=== PATIENT | female | born 1960 | race American Indian/Alaskan Native ===

== ENCOUNTER → 2016-10-31 | Day surgery (SDC) | payer MEDICARE, MEDICAID ==
[~2016-10-31] MED LIST: Lactated Ringers 1,000 ML IV SCH
[2016-10-31 09:01] VITALS: BP 143/91
--- NOTE | 2016-10-31 09:11 | PCM.PREANE ---
Preanesthetic Assessment - Anesthesia/Transfusion/Family Hx Anesthesia History: Prior Anesthesia Reaction (very slow to wake up) Family History of Anesthesia Reaction: No Transfusion History: No Prior Transfusion(s) Intubation History: Unknown - Review of Systems General: No Symptoms Pulmonary: No Symptoms Cardiovascular: No Symptoms Gastrointestinal: No Symptoms Neurological: No Symptoms Other: Reports: None - Physical Assessment O2 Sat by Pulse Oximetry: 95 Respiratory Rate: 16 Vital Signs: Last Vital Signs Temp 36.8 C 10/31/16 09:00 Pulse 95 10/31/16 09:00 Resp 16 10/31/16 09:00 BP 143/91 H 10/31/16 09:00 Pulse Ox 95 10/31/16 09:00 Height: 1.6 m Weight: 79.832 kg ASA Class: 2 Mental Status: Alert & Oriented x3 Airway Class: Mallampati = 2 Dentition: Reports: Dentures (upper), Edentulous (lower) Thyro-Mental Finger Breadths: 2 Mouth Opening Finger Breadths: 2 ROM/Head Extension: Full Lungs: Clear to Auscultation, Normal Respiratory Effort Cardiovascular: Regular Rate, Regular Rhythm - Allergies Allergies/Adverse Reactions: Allergies Allergy/AdvReac Type Severity Reaction Status Date / Time Penicillins Allergy Intermediate Rash Verified 09/22/13 18:01 cephalexin Allergy Airway Verified 02/18/14 11:13 Tightness clindamycin Allergy Airway Verified 02/18/14 11:13 Tightness codeine Allergy Cannot Verified 02/18/14 11:13 Remember Latex, Natural Rubber Allergy Rash Verified 10/25/16 15:36 quetiapine fumarate Allergy Airway Verified 02/18/14 11:13 [From Seroquel] Tightness secobarbital sodium Allergy Rash Verified 09/22/13 18:01 [From Seconal] vancomycin Allergy Rash Verified 09/22/13 18:01 - Blood Blood Available: No - Anesthesia Plan Pre-Op Medication Ordered: None - Acknowledgements Anesthesia Type Planned: General Anesthesia Pt an Appropriate Candidate for the Planned Anesthesia: Yes Alternatives and Risks of Anesthesia Discussed w Pt/Guardian: Yes Pt/Guardian Understands and Agrees with Anesthesia Plan: Yes PreAnesthesia Questionnaire HEENT History: Reports: None Cardiovascular History: Reports: Hypertension Respiratory History: Reports: COPD (mild) Genitourinary History: Reports: Other (See Below) Other Genitourinary History: hx kidney infections in the past 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: 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 History: Neurological History: Reports: Head Trauma, Migraines Other Neuro History: states head injury at 1 yr old, "heat stroke x2" Psychiatric History: Reports: Anxiety, Bipolar, Depression, Suicidal Ideation Endocrine/Metabolic History: Reports: Obesity/BMI 30+ Oncologic (Cancer) History: Reports: Breast, Other (See Below) 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 Dermatologic History: Reports: Other (See Below) Other Dermatologic History: states had infection to previous surgical site, Lotrimin powder ordered for this - Past Surgical History Head Surgeries/Procedures: Reports: None HEENT Surgical History: Reports: Tonsillectomy GI Surgical History: Reports: Appendectomy, Hernia, Inguinal Female Surgical History: Reports: Section 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 Surgical History: Reports: Other (See Below) Other 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 Surgeries/Procedures:: hx foot surgery (toenail removal) Other Surgical History Comment: excision of neuroma - SUBSTANCE USE Smoking Status *Q: Current Every Day Smoker (down to 2 cigarettes per day) Tobacco Use Within Last Twelve Months: Cigarettes Second Hand Smoke Exposure: No Days Per Week of Alcohol Use: 0 Recreational Drug Use History: No - HOME MEDS Home Medications: Home Meds ClonazePAM [KlonoPIN] 1 mg PO ASDIRECTED 09/22/13 [History] Hydrochlorothiazide 25 mg PO DAILY 10/25/16 [History] Miconazole Nitrate [Lotrimin AF] 1 applic TOP ASDIRECTED 10/25/16 [History] - CURRENT (IN HOUSE) MEDS Current Meds: Current Medications Lactated Ringer's (Ringers, Lactated) 1,000 mls @ 125 mls/hr IV ASDIRECTED [facility] Last Admin: 10/31/16 09:02 Dose: 125 mls/hr
== END ==
LOC: MW.SDS 08:39
PROVIDERS: ATTEND Surgery
DX: Z53.9 Procedure and treatment not carried out, unspecified reason (principal)
CPT/HCPCS: J7120

== ENCOUNTER 2016-12-23 00:44 | Emergency (ER) | payer MEDICARE, MEDICAID | END 2016-12-23 01:35 | disposition left against medical advice (07) | LOC: MW.ED 00:44 | DX: Z53.21 Procedure and treatment not carried out due to patient leaving prior to being seen by health care provider (principal) ==

== ENCOUNTER 2016-12-30 21:49 | Emergency (ER) | payer MEDICARE, MEDICAID ==
[2016-12-30 22:03] VITALS: BP 148/87
[2016-12-30] MEDS ORDERED: Sulfamethoxazole/Trimethoprim 800-160 MG Tab PO ONE (22:12)
--- NOTE | 2016-12-30 22:17 | EDM.PDOC ---
ED HPI GENERAL MEDICAL PROBLEM - General Chief Complaint: Skin Complaint Stated Complaint: PT WOULD LIKE TO BE SEEN Time Seen by Provider: 12/30/16 22:13 Source of Information: Reports: Patient - History of Present Illness INITIAL COMMENTS - FREE TEXT/NARRATIVE: HISTORY AND PHYSICAL: History of present illness: [Patient is postop on December 21 for appears to be a lumpectomy, there is a GRISELDA drain in place, there is mild cellulitis surrounding the GRISELDA drain cellulitis lesion is approximately the size of quarter. GRISELDA drain currently not draining any fluid, patient states it is not drained fluid for several days. She is in contact with her general surgeon daily over the phone who has not voiced any concerns per patient. She also has a mastitis that surrounds the areola approximately 2 inches in diameter. Mildly reddened slightly tender no exudate for drainage. No fever nausea vomiting chills sweats no chest pain shortness breath headache dizziness palpitation no bowel or urine symptoms Review of systems: As per history of present illness and below otherwise all systems reviewed and negative. Past medical history: As per history of present illness and as reviewed below otherwise noncontributory. Surgical history: As per history of present illness and as reviewed below otherwise noncontributory. Social history: No reported history of drug or alcohol abuse. Family history: As per history of present illness and as reviewed below otherwise noncontributory. Physical exam: HEENT: Atraumatic, normocephalic, pupils reactive, negative for conjunctival pallor or scleral icterus, mucous membranes moist, throat clear, neck supple, nontender, trachea midline. Lungs: Clear to auscultation, breath sounds equal bilaterally, chest nontender. Heart: S1S2, regular, negative for clicks, rubs, or JVD. Abdomen: Soft, nondistended, nontender. Negative for masses or hepatosplenomegaly. Negative for costovertebral tenderness. Pelvis: Stable nontender. Genitourinary: Deferred. Rectal: Deferred. Extremities: Atraumatic, negative for cords or calf pain. Neurovascular unremarkable. Neuro: Awake, alert, oriented. Cranial nerves II through XII unremarkable. Cerebellum unremarkable. Motor and sensory unremarkable throughout. Exam nonfocal. Skin surgical wound is clean dry intact sutures are in place GRISELDA drain in place a small cellulitis surrounding the insertion of the tube no exudate or induration Mastitis on the left breast as outlined in history of present illness again no induration no fluctuance Diagnostics: []Clinical Therapeutics: []Bactrim double strength by mouth twice a day #20 no refill Return if fever nausea vomiting chills sweats or worsening of symptoms despite antibiotics Follow-up with general surgeon as scheduled January 04 sooner as needed May also follow-up with primary care in the interim as needed Impression: [Cellulitis/mastitis Chronic history of baseline Postop for lumpectomy on left breast] Definitive disposition and diagnosis as appropriate pending reevaluation and review of above. Left Breast Pain Score (Numeric/FACES): 5 - Related Data Allergies Allergy/AdvReac Type Severity Reaction Status Date / Time Penicillins Allergy Intermediate Rash Verified 12/30/16 22:03 cephalexin Allergy Airway Verified 12/30/16 22:03 Tightness clindamycin Allergy Airway Verified 12/30/16 22:03 Tightness codeine Allergy Cannot Verified 12/30/16 22:03 Remember Latex, Natural Rubber Allergy Rash Verified 12/30/16 22:03 quetiapine fumarate Allergy Airway Verified 12/30/16 22:03 [From Seroquel] Tightness secobarbital sodium Allergy Rash Verified 12/30/16 22:03 [From Seconal] vancomycin Allergy Rash Verified 12/30/16 22:03 Home Meds: Home Meds ClonazePAM [KlonoPIN] 1 mg PO ASDIRECTED 09/22/13 [History] Hydrochlorothiazide 25 mg PO DAILY 10/25/16 [History] Miconazole Nitrate [Lotrimin AF] 1 applic TOP ASDIRECTED 10/25/16 [History] Past Medical History - Past Health History Medical/Surgical History: Denies Medical/Surgical History HEENT History: Reports: None Cardiovascular History: Reports: Hypertension Respiratory History: Reports: COPD Gastrointestinal History: Reports: None Genitourinary History: Reports: Other (See Below) Other Genitourinary History: hx kidney infections in the past 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: 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 History: Reports: None Neurological History: Reports: Head Trauma, Migraines Other Neuro History: states head injury at 1 yr old, "heat stroke x2" Psychiatric History: Reports: Anxiety, Bipolar, Depression, Suicidal Ideation Endocrine/Metabolic History: Reports: Obesity/BMI 30+ Oncologic (Cancer) History: Reports: Breast, Other (See Below) 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 Dermatologic History: Reports: Other (See Below) Other Dermatologic History: states had infection to previous surgical site, Lotrimin powder ordered for this - Infectious Disease History Infectious Disease History: Reports: Chicken Pox - Past Surgical History Head Surgeries/Procedures: Reports: None HEENT Surgical History: Reports: Tonsillectomy Cardiovascular Surgical History: Reports: None Respiratory Surgical History: Reports: None GI Surgical History: Reports: Appendectomy, Hernia, Inguinal Female Surgical History: Reports: Section 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 Surgical History: Reports: Other (See Below) Other 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 Surgeries/Procedures:: hx foot surgery (toenail removal) Social & Family History - Family History Family Medical History: Noncontributory - Tobacco Use Smoking Status *Q: Never Smoker Years of Tobacco use: 7 Packs/Tins Daily: 0.5 Used Tobacco, but Quit: No Second Hand Smoke Exposure: No - Caffeine Use Caffeine Use: Reports: None - Alcohol Use Days Per Week of Alcohol Use: 0 - Recreational Drug Use Recreational Drug Use: No ED ROS GENERAL - Review of Systems Review Of Systems: ROS reveals no pertinent complaints other than HPI. ED EXAM, SKIN/RASH Exam: See Below Course - Vital Signs Last Recorded V/S: Last Vital Signs Temp 36.6 C 12/30/16 21:59 Pulse 101 H 12/30/16 21:59 Resp 18 12/30/16 21:59 BP 148/87 H 12/30/16 21:59 Pulse Ox 95 12/30/16 21:59 - Orders/Labs/Meds Meds: Medications Discontinued Medications Generic Name Dose Route Start Last Admin Trade Name Pete PRN Reason Stop Dose Admin Trimethoprim/Sulfamethoxazole 1 tab 12/30/16 22:12 Septra Ds PO 12/30/16 22:13 ONETIME ONE Departure - Departure Time of Disposition: 22:16 Disposition: Home, Self-Care 01 Condition: Good Clinical Impression: Cellulitis - Discharge Information Referrals: PCP,None [Primary Care Provider] - Forms: ED Department Discharge Additional Instructions: Return if symptoms persist or worsen or fever nausea vomiting chills sweats despite antibiotics Follow-up with general surgeon as scheduled sooner as needed You may elect follow-up with your primary care in the interim if needed Medication as prescribed Continue to follow your general surgeons recommendations for postop care [facility] - Primary [facility] [address] [place] [id number] The following information is given to patients seen in the emergency department who are being discharged to home. This information is to outline your options for follow-up care. We provide all patients seen in our emergency department with a follow-up referral. The need for follow-up, as well as the timing and circumstances, are variable depending upon the specifics of your emergency department visit. If you don't have a primary care physician on staff, we will provide you with a referral. We always advise you to contact your personal physician following an emergency department visit to inform them of the circumstance of the visit and for follow-up with them and/or the need for any referrals to a consulting specialist. The emergency department will also refer you to a specialist when appropriate. This referral assures that you have the opportunity for follow-up care with a specialist. All of these measure are taken in an effort to provide you with optimal care, which includes your follow-up. Under all circumstances we always encourage you to contact your private physician who remains a resource for coordinating your care. When calling for follow-up care, please make the office aware that this follow-up is from your recent emergency room visit. If for any reason you are refused follow-up, please contact the [facility] emergency department at and asked to speak to the emergency department charge nurse.
== END 2016-12-30 22:41 | disposition home or self-care (01) ==
LOC: MW.ED 21:49
DX: T81.4XXA Infection following a procedure, initial encounter (principal); N61.0 Mastitis without abscess; Z90.12 Acquired absence of left breast and nipple; I10 Essential (primary) hypertension; Z88.1 Allergy status to other antibiotic agents; Z88.5 Allergy status to narcotic agent; Z91.040 Latex allergy status; Z79.899 Other long term (current) drug therapy; Z88.0 Allergy status to penicillin
CPT/HCPCS: 99282; A9270

== ENCOUNTER 2017-02-07 09:53 | Emergency (ER) | payer MEDICARE, MEDICAID ==
[2017-02-07 10:01] VITALS: BP 176/87
[2017-02-07] MEDS ORDERED: ClonazePAM 1 MG Tab PO ONE (10:17)
--- NOTE | 2017-02-07 11:03 | EDM.PDOC ---
ED HPI GENERAL MEDICAL PROBLEM - General Chief Complaint: Behavioral/Psych Stated Complaint: MENTAL ISSUES Time Seen by Provider: 02/07/17 10:06 Source of Information: Reports: Patient, Family History Limitations: Reports: No Limitations - History of Present Illness INITIAL COMMENTS - FREE TEXT/NARRATIVE: HISTORY AND PHYSICAL: []56-year-old female presents with depression and anxiety History of Present Illness: []Patient was diagnosed in September 2016 with invasive ductal carcinoma left breast She has undergone surgical procedures 2 without sentinel node dissection Patient does not understand the medical terminology and her treatment schedule January 29, 2017 patient did see , oncologist. I been able to review his records. She has scheduled appointment with a surgeon from [facility] for discussion of sentinel node dissection. Review of Systems: As per history of present illness and below otherwise all systems reviewed and negative. Past medical history: As per history of present illness and as reviewed below otherwise noncontributory. Surgical history: As per history of present illness and as reviewed below otherwise noncontributory. Social history: No reported history of drug or alcohol abuse. Family history: As per history of present illness and as reviewed below otherwise noncontributory. Physical exam: Alert and oriented female who is quite distressed she is tearful. Family is at bedside trying to give support. HEENT: Atraumatic, normocehpalic, pupils reactive, negative for conjunctival pallor or scleral icterus, mucous membranes moist, throat clear, neck supple, nontender, trachea midline. Lungs: Clear to auscultation, breath sounds equal bilaterally, chest non tender. Heart: S1S2, regular, negative for clicks, rubs, or JVD. Abdomen: Soft, nondistended, nontender. Negative for masses or hepatossplenmegaly. Negative for costovertebral tenderness. Pelvis: Stable nontender. Genitourinary: Deferred. Rectal: Deferred Extremities: Atraumatic, negative for cords or calf pain. Neurovascular unremarkable. Neuro: Awake, alert, oriented. Cranial nerves II through XII unremarkable. Cerebellum unremarkable. Motor and sensory unremarkable throughout. Exam nonfocal. Long discussion was held regarding her condition & her treatment options. Patient and family verbalized understanding of her medical condition and to be surgical events that have occurred. Patient has not seen mental health provider and I have recommended that she follow up with Lisa Campbell NP. As she is overwhelmed with her health status. Diagnostics: [] Therapeutics: []Klonopin Impression: []Depression/anxiety Yeast infection on her skin Plan: [Referred to Savanna Campbell NP ]Keep your appointment is scheduled at [facility] nystatin bid to the skin infection Definitive disposition and diagnosis as appropriate pending reevaluation and review of above. Onset: Gradual Duration: Week(s):, Getting Worse Breast Pain Score (Numeric/FACES): 8 - Related Data Allergies Allergy/AdvReac Type Severity Reaction Status Date / Time Penicillins Allergy Intermediate Rash Verified 02/07/17 10:01 cephalexin Allergy Airway Verified 02/07/17 10:01 Tightness clindamycin Allergy Airway Verified 02/07/17 10:01 Tightness codeine Allergy Cannot Verified 02/07/17 10:01 Remember Latex, Natural Rubber Allergy Rash Verified 02/07/17 10:01 quetiapine fumarate Allergy Airway Verified 02/07/17 10:01 [From Seroquel] Tightness secobarbital sodium Allergy Rash Verified 02/07/17 10:01 [From Seconal] vancomycin Allergy Rash Verified 02/07/17 10:01 Home Meds: Home Meds ClonazePAM [KlonoPIN] 1 mg PO ASDIRECTED 09/22/13 [History] Hydrochlorothiazide 25 mg PO DAILY 10/25/16 [History] Nystatin [Nystatin Crm] 30 gm TOP BID #1 tube 02/07/17 [Rx] Past Medical History - Past Health History Medical/Surgical History: Denies Medical/Surgical History HEENT History: Reports: None Cardiovascular History: Reports: Hypertension Respiratory History: Reports: COPD Gastrointestinal History: Reports: None Genitourinary History: Reports: Other (See Below) Other Genitourinary History: hx kidney infections in the past 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: 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 History: Reports: None Neurological History: Reports: Head Trauma, Migraines Other Neuro History: states head injury at 1 yr old, "heat stroke x2" Psychiatric History: Reports: Anxiety, Bipolar, Depression, Suicidal Ideation Endocrine/Metabolic History: Reports: Obesity/BMI 30+ Oncologic (Cancer) History: Reports: Breast, Other (See Below) 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 Dermatologic History: Reports: Other (See Below) Other Dermatologic History: states had infection to previous surgical site, Lotrimin powder ordered for this - Infectious Disease History Infectious Disease History: Reports: Chicken Pox, Measles, MRSA, Mumps - Past Surgical History Head Surgeries/Procedures: Reports: None HEENT Surgical History: Reports: Tonsillectomy Cardiovascular Surgical History: Reports: None Respiratory Surgical History: Reports: None GI Surgical History: Reports: Appendectomy, Hernia, Inguinal Female Surgical History: Reports: Section 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 Surgical History: Reports: Other (See Below) Other 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 Surgeries/Procedures:: hx foot surgery (toenail removal) Social & Family History - Family History Family Medical History: Noncontributory - Tobacco Use Smoking Status *Q: Current Every Day Smoker Years of Tobacco use: 30 Packs/Tins Daily: 0.5 Used Tobacco, but Quit: No Second Hand Smoke Exposure: No - Caffeine Use Caffeine Use: Reports: None - Alcohol Use Days Per Week of Alcohol Use: 0 - Recreational Drug Use Recreational Drug Use: No ED ROS GENERAL - Review of Systems Review Of Systems: ROS reveals no pertinent complaints other than HPI. - Physical Exam Exam: See Below (see dictation) Course - Vital Signs Last Recorded V/S: Last Vital Signs Temp 36.1 C 02/07/17 09:55 Pulse 118 H 02/07/17 09:55 Resp 20 02/07/17 09:55 BP 176/87 H 02/07/17 09:55 Pulse Ox 92 L 02/07/17 09:55 - Orders/Labs/Meds Meds: Medications Discontinued Medications Generic Name Dose Route Start Last Admin Trade Name Pete PRN Reason Stop Dose Admin Clonazepam 1 mg 02/07/17 10:17 02/07/17 10:40 Klonopin PO 02/07/17 10:18 1 mg ONETIME ONE Administration Departure - Departure Time of Disposition: 11:04 Disposition: Home, Self-Care 01 Condition: Good Clinical Impression: Depressive disorder, Anxiety - Discharge Information Prescriptions: Nystatin [Nystatin Crm] 30 gm TOP BID #1 tube Referrals: PCP,None [Primary Care Provider] - Additional Instructions: The following information is given to patients seen in the emergency department who are being discharged to home. This information is to outline your options for follow-up care. We provide all patients seen in our emergency department with a follow-up referral. The need for follow-up, as well as the timing and circumstances, are variable depending upon the specifics of your emergency department visit. If you don't have a primary care physician on staff, we will provide you with a referral. We always advise you to contact your personal physician following an emergency department visit to inform them of the circumstance of the visit and for follow-up with them and/or the need for any referrals to a consulting specialist. The emergency department will also refer you to a specialist when appropriate. This referral assures that you have the opportunity for followup care with a specialist. All of these measure are taken in an effort to provide you with optimal care, which includes your followup. Under all circumstances we always encourage you to contact your private physician who remains a resource for coordinating your care. When calling for followup care, please make the office aware that this follow-up is from your recent emergency room visit. If for any reason you are refused follow-up, please contact the [facility] emergency department at and asked to speak to the emergency department charge nurse. Our discussion during this visit to the emergency department has revealed that you have had a successful surgery for the breast cancer invasive ductal carcinoma Keep appointment coming up for [facility] to visit with the surgeon about trying to find the sentinel node. An appointment has been made for you to see Lisa Campbell NP at [facility] March 06, 2017 at 1 PM. A packet of information has been given to you to fill out before this appointment A prescription has been sent to your pharmacy, [facility] for the yeast infection you have A small bottle of soap was given to to use twice daily to wash off with scrub under your fingernails. Try not to get this in your eyes.
== END 2017-02-07 11:17 | disposition home or self-care (01) ==
LOC: MW.ED 09:53
DX: F32.9 Major depressive disorder, single episode, unspecified (principal); F41.9 Anxiety disorder, unspecified; I10 Essential (primary) hypertension; F17.210 Nicotine dependence, cigarettes, uncomplicated; Z88.1 Allergy status to other antibiotic agents; Z88.5 Allergy status to narcotic agent; Z91.040 Latex allergy status; Z88.0 Allergy status to penicillin
CPT/HCPCS: 99283; A9270

== ENCOUNTER 2017-04-22 17:51 | Emergency (ER) | payer MEDICARE, MEDICAID ==
[2017-04-22] MEDS ORDERED: Aspirin 81 MG Tab.Chew PO ONE (17:54)
[2017-04-22] MEDS ORDERED: Sodium Chloride 0.9% 10 ML Syringe FLUSH PRN (17:54)
[2017-04-22] MEDS ORDERED: Sodium Chloride 0.9% 2.5 ML Syringe FLUSH PRN (17:54)
[2017-04-22] MEDS ORDERED: Sodium Chloride 0.9% 1,000 ML IV SCH (18:00)
--- NOTE | 2017-04-22 18:03 | EDM.PDOC ---
<Abdelrahman Herrera - Last Filed: 04/22/17 18:50> ED HPI GENERAL MEDICAL PROBLEM - General Stated Complaint: ONCOLOGY PT /CHEST PAIN Time Seen by Provider: 04/22/17 17:53 - History of Present Illness INITIAL COMMENTS - FREE TEXT/NARRATIVE: HISTORY AND PHYSICAL: History of present illness: Patient is a 57-year-old white female history of breast cancer who states she's had negative sentinel lymph node biopsy and is scheduled to have drainage of a fluid collection in her left breast and is currently undergoing radiation therapy who presents with concern of chest pain she is a smoker she does drink daily she states pain was prior to arrival was in her mid chest somewhat vaguely described she also has a very erythematous warm tender area to her left breast patient has had a lumpectomy with clear margins and did have a course of Keflex . Review of systems: As per history of present illness and below otherwise all systems reviewed and negative. Past medical history: As per history of present illness and as reviewed below otherwise noncontributory. Surgical history: As per history of present illness and as reviewed below otherwise noncontributory. Social history: No reported history of drug or alcohol abuse. Family history: As per history of present illness and as reviewed below otherwise noncontributory. Physical exam: HEENT: Atraumatic, normocephalic, pupils reactive, negative for conjunctival pallor or scleral icterus, mucous membranes moist, throat clear, neck supple, nontender, trachea midline. Lungs: Clear to auscultation, breath sounds equal bilaterally, chest large warm tender area with induration noted to her left breast there is no clear area of fluctuance noted. Heart: S1S2, regular, negative for clicks, rubs, or JVD. Abdomen: Soft, nondistended, nontender. Negative for masses or hepatosplenomegaly. Negative for costovertebral tenderness. Pelvis: Stable nontender. Genitourinary: Deferred. Rectal: Deferred. Extremities: Atraumatic, negative for cords or calf pain. Neurovascular unremarkable. Neuro: Awake, alert, oriented. Cranial nerves II through XII unremarkable. Cerebellum unremarkable. Motor and sensory unremarkable throughout. Exam nonfocal. Diagnostics: CBC CMP PT/INR troponin blood culture 2 CTA chest Therapeutics: IV O2 monitor aspirin 324 mg Cubicin 550 mg IV 1 Impression: #1 chest pain #2 history of breast cancer #3 rule out cellulitis left breast Definitive disposition and diagnosis as appropriate pending reevaluation and review of above. midsternal Pain Score (Numeric/FACES): 7 - Related Data Allergies Allergy/AdvReac Type Severity Reaction Status Date / Time Penicillins Allergy Intermediate Rash Verified 04/22/17 18:01 cephalexin Allergy Airway Verified 04/22/17 18:01 Tightness clindamycin Allergy Airway Verified 04/22/17 18:01 Tightness codeine Allergy Cannot Verified 04/22/17 18:01 Remember Latex, Natural Rubber Allergy Rash Verified 04/22/17 18:01 quetiapine fumarate Allergy Airway Verified 04/22/17 18:01 [From Seroquel] Tightness secobarbital sodium Allergy Rash Verified 04/22/17 18:01 [From Seconal] vancomycin Allergy Rash Verified 04/22/17 18:01 Home Meds: Home Meds ClonazePAM [KlonoPIN] 1 mg PO ASDIRECTED 09/22/13 [History] Hydrochlorothiazide 25 mg PO DAILY 10/25/16 [History] Nystatin [Nystatin Crm] 30 gm TOP BID #1 tube 02/07/17 [Rx] Past Medical History - Past Health History Medical/Surgical History: Denies Medical/Surgical History HEENT History: Reports: None Cardiovascular History: Reports: Hypertension Respiratory History: Reports: COPD Gastrointestinal History: Reports: None Genitourinary History: Reports: Other (See Below) Other Genitourinary History: hx kidney infections in the past [employer] History: Reports: 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 History: Reports: None Neurological History: Reports: Head Trauma, Migraines Other Neuro History: states head injury at 1 yr old, "heat stroke x2" Psychiatric History: Reports: Anxiety, Bipolar, Depression, Suicidal Ideation Endocrine/Metabolic History: Reports: Obesity/BMI 30+ Oncologic (Cancer) History: Reports: Breast, Other (See Below) 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 Dermatologic History: Reports: Other (See Below) Other Dermatologic History: states had infection to previous surgical site, Lotrimin powder ordered for this - Infectious Disease History Infectious Disease History: Reports: Chicken Pox, Measles, MRSA, Mumps - Past Surgical History Head Surgeries/Procedures: Reports: None HEENT Surgical History: Reports: Tonsillectomy Cardiovascular Surgical History: Reports: None Respiratory Surgical History: Reports: None GI Surgical History: Reports: Appendectomy, Hernia, Inguinal Female Surgical History: Reports: Section 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 Surgical History: Reports: Other (See Below) Other 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 Surgeries/Procedures:: hx foot surgery (toenail removal) Social & Family History - Family History Family Medical History: Noncontributory - Tobacco Use Smoking Status *Q: Current Every Day Smoker Years of Tobacco use: 30 Packs/Tins Daily: 0.5 Used Tobacco, but Quit: No Second Hand Smoke Exposure: No - Caffeine Use Caffeine Use: Reports: None - Alcohol Use Days Per Week of Alcohol Use: 0 - Recreational Drug Use Recreational Drug Use: No ED ROS GENERAL - Review of Systems Review Of Systems: ROS reveals no pertinent complaints other than HPI. ED EXAM, GENERAL - Physical Exam Exam: See Below (See dictation) Course - Vital Signs Last Recorded V/S: Last Vital Signs Temp 98.2 F 04/22/17 18:00 Pulse 108 H 04/22/17 18:00 Resp 20 04/22/17 18:00 BP 120/76 04/22/17 18:00 Pulse Ox 93 L 04/22/17 18:00 - Orders/Labs/Meds Orders: Active Orders 24 hr Category Date Time Status EKG Documentation Completion [RC] STAT Care 04/22/17 17:54 Active Pulse Oximetry [RC] ASDIRECTED Care 04/22/17 17:54 Active Ang Chest [CT] Stat Exams 04/22/17 17:54 Taken CULTURE BLOOD [BC] Stat Lab 04/22/17 18:13 Received CULTURE BLOOD [BC] Stat Lab 04/22/17 18:16 Results Sodium Chloride 0.9% [Normal Saline] 1,000 ml Med 04/22/17 18:00 Active IV STAT Sodium Chloride 0.9% [Normal Saline] 500 ml Med 04/22/17 18:30 Active IV STAT Sodium Chloride 0.9% [Saline Flush] Med 04/22/17 17:54 Active 10 ml FLUSH ASDIRECTED PRN Sodium Chloride 0.9% [Saline Flush] Med 04/22/17 17:54 Active 2.5 ml FLUSH ASDIRECTED PRN Blood Culture x2 Reflex Set [OM.PC] Stat Oth 04/22/17 17:54 Ordered Saline Lock Insert [OM.PC] Stat Oth 04/22/17 17:54 Ordered Medication Orders Sodium Chloride (Normal Saline) 1,000 mls @ 125 mls/hr IV STAT STEFFEN Sodium Chloride (Normal Saline) 500 mls @ 999 mls/hr IV STAT STEFFEN Last Admin: 04/22/17 18:25 Dose: 999 mls/hr Sodium Chloride (Saline Flush) 10 ml FLUSH ASDIRECTED PRN PRN Reason: Keep Vein Open Last Admin: 04/22/17 18:24 Dose: 10 ml Sodium Chloride (Saline Flush) 2.5 ml FLUSH ASDIRECTED PRN PRN Reason: Keep Vein Open Last Admin: 04/22/17 18:24 Dose: 2.5 ml Labs: Laboratory Tests 04/22/17 04/22/17 04/22/17 Range/Units 18:13 18:13 18:13 WBC 9.17 (4.0-11.0) K/uL RBC 4.07 L (4.30-5.90) M/uL Hgb 12.9 (12.0-16.0) g/dL Hct 38.8 (36.0-46.0) % MCV 95.3 (80.0-98.0) fL MCH 31.7 (27.0-32.0) pg MCHC 33.2 (31.0-37.0) g/dL RDW Std Deviation 44.6 (28.0-62.0) fl RDW Coeff of Misti 13 (11.0-15.0) % Plt Count 399 (150-400) K/uL MPV 9.20 (7.40-12.00) fL Neut % (Auto) 75.7 (48.0-80.0) % Lymph % (Auto) 14.3 L (16.0-40.0) % Evans % (Auto) 8.1 (0.0-15.0) % Eos % (Auto) 1.7 (0.0-7.0) % Baso % (Auto) 0.2 (0.0-1.5) % Neut # (Auto) 6.9 H (1.4-5.7) K/uL Lymph # (Auto) 1.3 (0.6-2.4) K/uL Evans # (Auto) 0.7 (0.0-0.8) K/uL Eos # (Auto) 0.2 (0.0-0.7) K/uL Baso # (Auto) 0.0 (0.0-0.1) K/uL Nucleated RBC % 0.0 /100WBC Nucleated RBCs # 0 K/uL INR 1.05 Sodium 139 (136-146) mmol/L Potassium 3.6 (3.5-5.1) mmol/L Chloride 103 (98-110) mmol/L Carbon Dioxide 26 (21-31) mmol/L BUN 4 L (6.0-23.0) mg/dL Creatinine 0.6 (0.6-1.5) mg/dL Est Cr Clr Drug Dosing 85.57 mL/min Estimated GFR (MDRD) > 60.0 ml/min Glucose 104 (60-110) mg/dL Calcium 8.8 (8.8-10.8) mg/dL Total Bilirubin 0.2 (0.1-1.5) mg/dL AST 19 (5-40) IU/L ALT 14 (8-54) IU/L Alkaline Phosphatase 74 (40-150) Troponin I < 0.10 (0.0-0.29) NG/ML B-Natriuretic Peptide (<100) PG/ML Total Protein 6.1 (6.0-8.0) g/dL Albumin 3.0 L (3.5-5.0) g/dL Globulin 3.1 (2.0-3.5) g/dL Albumin/Globulin Ratio 1.0 L (1.3-2.8) Ethyl Alcohol 29.5 mg/dL 04/22/17 Range/Units 18:13 WBC (4.0-11.0) K/uL RBC (4.30-5.90) M/uL Hgb (12.0-16.0) g/dL Hct (36.0-46.0) % MCV (80.0-98.0) fL MCH (27.0-32.0) pg MCHC (31.0-37.0) g/dL RDW Std Deviation (28.0-62.0) fl RDW Coeff of Misti (11.0-15.0) % Plt Count (150-400) K/uL MPV (7.40-12.00) fL Neut % (Auto) (48.0-80.0) % Lymph % (Auto) (16.0-40.0) % Evans % (Auto) (0.0-15.0) % Eos % (Auto) (0.0-7.0) % Baso % (Auto) (0.0-1.5) % Neut # (Auto) (1.4-5.7) K/uL Lymph # (Auto) (0.6-2.4) K/uL Evans # (Auto) (0.0-0.8) K/uL Eos # (Auto) (0.0-0.7) K/uL Baso # (Auto) (0.0-0.1) K/uL Nucleated RBC % /100WBC Nucleated RBCs # K/uL INR Sodium (136-146) mmol/L Potassium (3.5-5.1) mmol/L Chloride (98-110) mmol/L Carbon Dioxide (21-31) mmol/L BUN (6.0-23.0) mg/dL Creatinine (0.6-1.5) mg/dL Est Cr Clr Drug Dosing mL/min Estimated GFR (MDRD) ml/min Glucose (60-110) mg/dL Calcium (8.8-10.8) mg/dL Total Bilirubin (0.1-1.5) mg/dL AST (5-40) IU/L ALT (8-54) IU/L Alkaline Phosphatase (40-150) Troponin I (0.0-0.29) NG/ML B-Natriuretic Peptide 21 (<100) PG/ML Total Protein (6.0-8.0) g/dL Albumin (3.5-5.0) g/dL Globulin (2.0-3.5) g/dL Albumin/Globulin Ratio (1.3-2.8) Ethyl Alcohol mg/dL Meds: Medications Generic Name Dose Route Start Last Admin Trade Name Freq PRN Reason Stop Dose Admin Sodium Chloride 1,000 mls @ 125 mls/hr 04/22/17 18:00 Normal Saline IV STAT STEFFEN Sodium Chloride 500 mls @ 999 mls/hr 04/22/17 18:30 04/22/17 18:25 Normal Saline IV 999 mls/hr STAT STEFFEN Administration Sodium Chloride 10 ml 04/22/17 17:54 04/22/17 18:24 Saline Flush FLUSH 10 ml ASDIRECTED PRN Administration Keep Vein Open Sodium Chloride 2.5 ml 04/22/17 17:54 04/22/17 18:24 Saline Flush FLUSH 2.5 ml ASDIRECTED PRN Administration Keep Vein Open Discontinued Medications Generic Name Dose Route Start Last Admin Trade Name Pete PRN Reason Stop Dose Admin Aspirin 324 mg 04/22/17 17:54 04/22/17 18:21 Aspirin PO 04/22/17 17:55 324 mg ONETIME ONE Administration Daptomycin 550 mg/ Sodium 50 mls @ 50 mls/hr 04/22/17 18:15 04/22/17 18:52 Chloride IV 04/22/17 19:14 50 mls/hr ONETIME ONE Administration Departure - Departure Disposition: Refer to Observation Clinical Impression: Cellulitis - Discharge Information Referrals: PCP,None [Primary Care Provider] - <Eric Williamson - Last Filed: 04/22/17 20:32> ED HPI GENERAL MEDICAL PROBLEM - History of Present Illness INITIAL COMMENTS - FREE TEXT/NARRATIVE: I've seen and examined the patient agree with above history evaluation and treatment Patient signed out to me to follow CTA of chest negative for PE or other acute findings or is a small fluid collection visualized in the left axilla on CT, I did speak with Dr. Colon who is admitting the patient for observation and further orders and management pending his evaluation and treatment Departure - Departure Time of Disposition: 20:31 Condition: Fair
[2017-04-22 18:13] VITALS: BP 120/76
[2017-04-22] MEDS ORDERED: Sodium Chloride 0.9% 500 ML IV SCH (18:30)
[2017-04-22 18:44] LABS: CHLORIDE,CL 103 mmol/L (98-110); SODIUM,NA 139 mmol/L (136-146)
[2017-04-23] MEDS ORDERED: DAPTOmycin 500 MG Vial IV ONE (17:55)
--- NOTE | 2017-04-23 18:54 | CT ---
EXAM DATE: 04/22/17 PATIENT'S AGE: 57 Patient: LUCIANA KHANNA Facility: [place], [place] Site . Site : 1960 Study: CT Chest Angio [id number] 7:52:45 PM Ordering Physician: Javier Quick Final Report: TECHNIQUE: IV contrast-enhanced CT chest wall pulmonary embolism protocol. Contrast volume not recorded. INDICATION: Chest pain, shortness of breath and history of breast cancer. FINDINGS: No pulmonary emboli. Mild emphysema in the lung apices. No suspicious pulmonary nodule, mass, or consolidation. Major airways are patent. No thoracic lymphadenopathy by CT size criteria. Partially visualized fluid collection in the left axilla is probably a seroma. Visualized upper abdomen is unremarkable. IMPRESSION: No acute findings including no pulmonary emboli. Please note that all CT scans performed at this facility use dose modulation, iterative reconstruction, and/or weight based dosing when appropriate to reduce radiation dose to as low as reasonably achievable. Dictated by Stevie Egan MD @ 04/22/2017 8:07:01 PM Dictated by: Stevie Egan MD @ 04/22/2017 20:07:12 (Electronic Signature) Report Signed by Proxy. [facility] COMM[facility] HOSPITALYuliana
== END 2017-04-22 21:02 | disposition left against medical advice (07) ==
LOC: MW.ED 17:51
DX: C50.912 Malignant neoplasm of unspecified site of left female breast (principal); R07.2 Precordial pain; I10 Essential (primary) hypertension; J44.9 Chronic obstructive pulmonary disease, unspecified; F31.9 Bipolar disorder, unspecified; F17.210 Nicotine dependence, cigarettes, uncomplicated; Z79.899 Other long term (current) drug therapy; Z88.0 Allergy status to penicillin; Z88.1 Allergy status to other antibiotic agents; Z88.5 Allergy status to narcotic agent; Z88.8 Allergy status to other drugs, medicaments and biological substances; Z91.040 Latex allergy status
CPT/HCPCS: 71275; 80053; 83880; 84484; 85025; 85610; 87040; 93005; 96361; 96365; 99285; A9270; G0480; J0878; J7040; J7050; 99284

== ENCOUNTER 2017-05-18 16:23 | Emergency (ER) | payer MEDICARE, MEDICAID ==
[2017-05-18 17:11] VITALS: BP 137/92
--- NOTE | 2017-05-18 17:12 | EDM.PDOC ---
ED HPI GENERAL MEDICAL PROBLEM - General Chief Complaint: Upper Extremity Injury/Pain Stated Complaint: SHAKING,COLD EXTREMITIES Time Seen by Provider: 05/18/17 17:07 - History of Present Illness INITIAL COMMENTS - FREE TEXT/NARRATIVE: HISTORY AND PHYSICAL: History of present illness: Patient 37-year-old female presents with a concern of swelling of her left upper extremity after having recent breast drain placements. Patient denies fever chills nausea vomiting or other complaints. Patient is a breast cancer survivor and is cancer free as far she knows this was a scar tissue benign fluid collection per patient. Review of systems: As per history of present illness and below otherwise all systems reviewed and negative. Past medical history: As per history of present illness and as reviewed below otherwise noncontributory. Surgical history: As per history of present illness and as reviewed below otherwise noncontributory. Social history: No reported history of drug or alcohol abuse. Family history: As per history of present illness and as reviewed below otherwise noncontributory. Physical exam: HEENT: Atraumatic, normocephalic, pupils reactive, negative for conjunctival pallor or scleral icterus, mucous membranes moist, throat clear, neck supple, nontender, trachea midline. Lungs: Clear to auscultation, breath sounds equal bilaterally, chest nontender. Patient has a drain in place with no significant erythema minimal drainage noted in her left breast this is noted in the left upper quadrant of her breast Heart: S1S2, regular, negative for clicks, rubs, or JVD. Abdomen: Soft, nondistended, nontender. Negative for masses or hepatosplenomegaly. Negative for costovertebral tenderness. Pelvis: Stable nontender. Genitourinary: Deferred. Rectal: Deferred. Extremities: Atraumatic, negative for cords or calf pain. Neurovascular unremarkable. Left upper extremity has some mild swelling there is good pulses neurovascular exam in CMS are normal Neuro: Awake, alert, oriented. Cranial nerves II through XII unremarkable. Cerebellum unremarkable. Motor and sensory unremarkable throughout. Exam nonfocal. Diagnostics: Ultrasound left upper extremity Therapeutics: None Impression: #1 medical screening exam #2 left upper extremity swelling rule out thromboembolism Definitive disposition and diagnosis as appropriate pending reevaluation and review of above. Left Arm Pain Score (Numeric/FACES): 5 - Related Data Allergies Allergy/AdvReac Type Severity Reaction Status Date / Time Penicillins Allergy Intermediate Rash Verified 05/18/17 16:42 cephalexin Allergy Airway Verified 05/18/17 16:42 Tightness clindamycin Allergy Airway Verified 05/18/17 16:42 Tightness codeine Allergy Cannot Verified 05/18/17 16:42 Remember Latex, Natural Rubber Allergy Rash Verified 05/18/17 16:42 quetiapine fumarate Allergy Airway Verified 05/18/17 16:42 [From Seroquel] Tightness secobarbital sodium Allergy Rash Verified 05/18/17 16:42 [From Seconal] vancomycin Allergy Rash Verified 05/18/17 16:42 Home Meds: Home Meds ClonazePAM [KlonoPIN] 1 mg PO ASDIRECTED 09/22/13 [History] Hydrochlorothiazide 25 mg PO DAILY 10/25/16 [History] ARIPiprazole [Abilify] 05/18/17 [History] Doxepin [SINEquan] 05/18/17 [History] oxyCODONE 05/18/17 [History] Past Medical History - Past Health History Medical/Surgical History: Denies Medical/Surgical History HEENT History: Reports: None Cardiovascular History: Reports: Hypertension Respiratory History: Reports: COPD Gastrointestinal History: Reports: None Genitourinary History: Reports: Other (See Below) Other Genitourinary History: hx kidney infections in the past USED [employer] History: Reports: 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 History: Reports: None Neurological History: Reports: Head Trauma, Migraines Other Neuro History: states head injury at 1 yr old, "heat stroke x2" Psychiatric History: Reports: Anxiety, Bipolar, Depression, Suicidal Ideation Endocrine/Metabolic History: Reports: Obesity/BMI 30+ Oncologic (Cancer) History: Reports: Breast, Other (See Below) 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 Dermatologic History: Reports: Other (See Below) Other Dermatologic History: states had infection to previous surgical site, Lotrimin powder ordered for this - Infectious Disease History Infectious Disease History: Reports: Chicken Pox, Measles, MRSA, Mumps - Past Surgical History Head Surgeries/Procedures: Reports: None HEENT Surgical History: Reports: Tonsillectomy Cardiovascular Surgical History: Reports: None Respiratory Surgical History: Reports: None GI Surgical History: Reports: Appendectomy, Hernia, Inguinal Female Surgical History: Reports: Section 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 Surgical History: Reports: Other (See Below) Other 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 Surgeries/Procedures:: hx foot surgery (toenail removal) Social & Family History - Family History Family Medical History: Noncontributory - Tobacco Use Smoking Status *Q: Current Every Day Smoker Years of Tobacco use: 30 Packs/Tins Daily: 0.5 Used Tobacco, but Quit: No Second Hand Smoke Exposure: No - Caffeine Use Caffeine Use: Reports: None - Alcohol Use Days Per Week of Alcohol Use: 0 Number of Drinks Per Day: 2 Total Drinks Per Week: 0 - Recreational Drug Use Recreational Drug Use: No Review of Systems - Review of Systems Review Of Systems: ROS reveals no pertinent complaints other than HPI. ED EXAM, GENERAL - Physical Exam Exam: See Below (See dictation) Course - Vital Signs Last Recorded V/S: Last Vital Signs Temp 37.3 C 05/18/17 16:51 Pulse 108 H 05/18/17 16:51 Resp 20 05/18/17 16:51 BP 137/92 H 05/18/17 16:51 Pulse Ox 94 L 05/18/17 16:51 - Orders/Labs/Meds Orders: Active Orders 24 hr Category Date Time Status Venous Doppler Upr Ext Lt [US] Stat Exams 05/18/17 17:06 Taken Departure - Departure Time of Disposition: 16:00 Disposition: Eloped 07 Condition: Undetermined Clinical Impression: Encounter for medical screening examination - Discharge Information Referrals: Elder Ordaz MD [Primary Care Provider] - Forms: ED Department Discharge - My Orders Last 24 Hours: My Active Orders 05/18/17 17:06 Venous Doppler Upr Ext Lt [US] Stat - Assessment/Plan Last 24 Hours: My Active Orders 05/18/17 17:06 Venous Doppler Upr Ext Lt [US] Stat
--- NOTE | 2017-05-21 11:24 | US ---
EXAM DATE: 05/18/17 PATIENT'S AGE: 57 Patient: LUCIANA KHANNA Facility: [place], [place] Site . Site : 1960 Study: US Extremity Venous LT ARM [id number] 6:00:07 PM Ordering Physician: Doctor Preciado Final Report: INDICATION: Swelling left upper extremity; recent drainage of the left breast abscess. COMPARISON: None. TECHNIQUE: Duplex ultrasound evaluation venous system left upper extremity; color Doppler duplex assessment. FINDINGS: No evidence of deep venous thrombosis involving the left upper extremity deep venous system. Deep venous system is compressible with augmentation of flow post compression. Phasic flow identified. Respiratory phasicity identified with the flow in the subclavian vein. The left jugular vein is unremarkable. Impression: No DVT left upper extremity deep venous system. Dictated by Desmond Cordero MD @ May 18 2017 6:31PM (Electronic Signature) Report Signed by Proxy. RAJAT
== END 2017-05-18 18:17 | disposition left against medical advice (07) ==
LOC: MW.ED 16:23
DX: R22.32 Localized swelling, mass and lump, left upper limb (principal); I10 Essential (primary) hypertension; F17.210 Nicotine dependence, cigarettes, uncomplicated; Z88.0 Allergy status to penicillin; Z88.1 Allergy status to other antibiotic agents; Z88.5 Allergy status to narcotic agent; Z88.8 Allergy status to other drugs, medicaments and biological substances; Z79.899 Other long term (current) drug therapy
CPT/HCPCS: 93971-26-LT; 93971-LT; 99283; 99283-25

== ENCOUNTER 2020-07-09 23:58 | Emergency (ER) | payer MEDICARE, MEDICAID ==
[2020-07-10 00:22] VITALS: BP 152/93; PULSE 93
--- NOTE | 2020-07-10 00:43 | EDM.PDOC ---
ED HPI GENERAL MEDICAL PROBLEM - General Chief Complaint: Lower Extremity Injury/Pain Stated Complaint: FELL DOWNSTAIRS Time Seen by Provider: 07/10/20 00:15 - History of Present Illness INITIAL COMMENTS - FREE TEXT/NARRATIVE: History of present illness: [] The patient fell down steps 2 days ago. She was at her mother's house where she thinks her mother and she is unfamiliar. She counted the steps wrong and at the end she stepped when she was not at the bottom and fell injuring her right lower extremity. She denies any other injury. She denies loss of consciousness. She has severe pain in the right ankle and foot and it is worse when she tries to bear weight or move it. Review of systems: As per history of present illness and below otherwise all systems reviewed and negative. Past medical history: As per history of present illness and as reviewed below otherwise noncontributory. Surgical history: As per history of present illness and as reviewed below otherwise noncontributory. Social history: No reported history of drug or alcohol abuse. Family history: As per history of present illness and as reviewed below otherwise noncontributory. Physical exam: Constitutional - well developed, well-nourished and in no acute distress HEENT - normocephalic, no evidence of trauma - external nose and mouth normal - no mass in neck and no JVD - mucosae moist EYES - full EOM, PERRL, no icterus - no evidence of inflammation, injection, or drainage Respiratory - no respiratory distress, equal bilateral expansion, chest wall nontender GI - abdomen soft without distension or organomegaly -no guard or rebound 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 tender swelling and deformity from the lowest third of the right leg and specifically at the lateral malleolus and at the lateral side of the right foot. No gross deformity of long bones or joints - no tenderness, swelling or edema Neurologic - Alert and oriented times four - CN II-XII grossly intact - motor sensory and coordination symmetrically normal Psychiatric - appropriate mood and affect with normal thought content Hematologic - No petechiae or purpura - mucosa appropriate color and sclera not pale - normal nail bed color and refill Integument - no rash or evidence of trauma - normal turgor Diagnostics: [] Therapeutics: [] Impression: [] Plan: [] Definitive disposition and diagnosis as appropriate pending reevaluation and review of above. Right Foot Pain Score (Numeric/FACES): 7 - Related Data Allergies Allergy/AdvReac Type Severity Reaction Status Date / Time Penicillins Allergy Intermediate Rash Verified 07/10/20 00:22 cephalexin Allergy Airway Verified 07/10/20 00:22 Tightness clindamycin Allergy Airway Verified 07/10/20 00:22 Tightness codeine Allergy Cannot Verified 07/10/20 00:22 Remember Latex, Natural Rubber Allergy Rash Verified 07/10/20 00:22 quetiapine fumarate Allergy Airway Verified 07/10/20 00:22 [From Seroquel] Tightness secobarbital sodium Allergy Rash Verified 07/10/20 00:22 [From Seconal] vancomycin Allergy Rash Verified 07/10/20 00:22 Home Meds: Home Meds ClonazePAM [KlonoPIN] 1 mg PO ASDIRECTED 09/22/13 [History] Hydrochlorothiazide 25 mg PO DAILY 10/25/16 [History] ARIPiprazole [Abilify] 5 mg PO DAILY 05/18/17 [History] Doxepin [SINEquan] 25 mg PO BID 05/18/17 [History] oxyCODONE 10 mg PO ASDIRECTED PRN 05/18/17 [History] Past Medical History - Past Health History Medical/Surgical History: Denies Medical/Surgical History HEENT History: Reports: None Cardiovascular History: Reports: Hypertension Respiratory History: Reports: COPD Gastrointestinal History: Reports: None Genitourinary History: Reports: Other (See Below) Other Genitourinary History: hx kidney infections in the past [employer] History: Reports: 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 History: Reports: None Neurological History: Reports: Head Trauma, Migraines Other Neuro History: states head injury at 1 yr old, "heat stroke x2" Psychiatric History: Reports: Anxiety, Bipolar, Depression, Suicidal Ideation Endocrine/Metabolic History: Reports: Obesity/BMI 30+ Oncologic (Cancer) History: Reports: Breast, Other (See Below) 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 Dermatologic History: Reports: Other (See Below) Other Dermatologic History: states had infection to previous surgical site, Lotrimin powder ordered for this - Infectious Disease History Infectious Disease History: Reports: Chicken Pox, Measles, MRSA, Mumps - Past Surgical History Head Surgeries/Procedures: Reports: None HEENT Surgical History: Reports: Tonsillectomy Cardiovascular Surgical History: Reports: None Respiratory Surgical History: Reports: None GI Surgical History: Reports: Appendectomy, Hernia, Inguinal Female Surgical History: Reports: Section 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 Surgical History: Reports: Other (See Below) Other 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 Surgeries/Procedures:: hx foot surgery (toenail removal) Social & Family History - Family History Family Medical History: No Pertinent Family History - Caffeine Use Caffeine Use: Reports: None - Recreational Drug Use Recreational Drug Use: Yes Drug Use in Last 12 Months: Yes Recreational Drug Type: Reports: Marijuana/Hashish Other Recreational Drug Type: medical marijuana Recreational Drug Use Frequency: Daily Review of Systems - Review of Systems Review Of Systems: Comprehensive ROS is negative, except as noted in HPI. ED EXAM, GENERAL - Physical Exam Exam: See Below Free Text/Narrative:: My physical exam is in the HPI Course - Vital Signs Text/Narrative:: 0139 hrs. patient chills walking boot rather than bulky dressing and crutches because she needs to be ambulatory take care of her mother. Diagnosis is sprain. Walking boot is to protect her from further damage from further inversion. Last Recorded V/S: Last Vital Signs Temp 36.8 C 07/10/20 00:09 Pulse 93 07/10/20 00:09 Resp 18 07/10/20 00:09 BP 152/93 H 07/10/20 00:09 Pulse Ox 100 07/10/20 00:09 - Orders/Labs/Meds Orders: Active Orders 24 hr Category Date Time Status DME for Discharge [COMM] Stat Oth 07/10/20 01:38 Ordered Departure - Departure Time of Disposition: 01:40 Disposition: Home, Self-Care 01 Condition: Good Clinical Impression: Sprain of ligament of right ankle - Discharge Information Instructions: Ankle Sprain, [id number] Referrals: Elder Ordaz MD [Primary Care Provider] - Forms: ED Department Discharge Additional Instructions: [facility] [address], [address] [place] [address] The following information is given to patients seen in the emergency department who are being discharged to home. This information is to outline your options for follow-up care. We provide all patients seen in our emergency department with a follow-up referral. The need for follow-up, as well as the timing and circumstances, are variable depending upon the specifics of your emergency department visit. If you don't have a primary care physician on staff, we will provide you with a referral. We always advise you to contact your personal physician following an emergency department visit to inform them of the circumstance of the visit and for follow-up with them and/or the need for any referrals to a consulting specialist. The emergency department will also refer you to a specialist when appropriate. This referral assures that you have the opportunity for follow-up care with a specialist. All of these measure are taken in an effort to provide you with optimal care, which includes your follow-up. Under all circumstances we always encourage you to contact your private physician who remains a resource for coordinating your care. When calling for follow-up care, please make the office aware that this follow-up is from your recent emergency room visit. If for any reason you are refused follow-up, please contact the [facility] Emergency Department at and asked to speak to the emergency department charge nurse. Sepsis Event Note (ED) - Evaluation Sepsis Screening Result: No Definite Risk - Focused Exam Vital Signs: Vital Signs Temp Pulse Resp BP Pulse Ox 07/10/20 00:09 36.8 C 93 18 152/93 H 100 - My Orders Last 24 Hours: My Active Orders 07/10/20 01:38 DME for Discharge [COMM] Stat - Assessment/Plan Last 24 Hours: My Active Orders 07/10/20 01:38 DME for Discharge [COMM] Stat
--- NOTE | 2020-07-10 01:11 | CR ---
Indication: Injury Technique: Three views of the right foot. Comparison: None Findings/Impression: Acute displaced fracture of the distal diametaphyseal junction of the 5th proximal phalanx. No evidence of articular surface involvement. No joint dislocation. Dictated by Misael Gutierres MD @ 07/10/2020 1:09:[address] Misael Gutierres @ Jul 10 2020 1:09AM
--- NOTE | 2020-07-10 01:13 | CR ---
Indication: Injury Technique: Two views of the right ankle Comparison: None Findings/Impression: No evidence of ankle fracture or dislocation. Subcutaneous edema is noted laterally. Dictated by Misael Gutierres MD @ 07/10/2020 1:10:[address] Misael Gutierres @ Jul 10 2020 1:10AM
== END 2020-07-10 01:55 | disposition home or self-care (01) ==
LOC: MW.ED 23:58
DX: S93.401A Sprain of unspecified ligament of right ankle, initial encounter (principal); I10 Essential (primary) hypertension; J44.9 Chronic obstructive pulmonary disease, unspecified; E66.9 Obesity, unspecified; Z88.1 Allergy status to other antibiotic agents; Z88.0 Allergy status to penicillin; Z88.5 Allergy status to narcotic agent; Z91.040 Latex allergy status; W10.9XXA Fall (on) (from) unspecified stairs and steps, initial encounter
CPT/HCPCS: 73600-26-RT; 73600-RT; 73630-26-RT; 73630-RT; 99282; 99283

== ENCOUNTER 2021-04-27 09:08 | Emergency (ER) | payer MEDICARE, MEDICAID ==
[2021-04-27] MEDS ORDERED: Sodium Chloride 0.9% 1,000 ML IV ONE (09:38)
[2021-04-27] MEDS ORDERED: Sodium Chloride 0.9% 10 ML Syringe FLUSH PRN (09:38)
[2021-04-27] MEDS ORDERED: Sodium Chloride 0.9% 2.5 ML Syringe FLUSH PRN (09:38)
[2021-04-27] MEDS ORDERED: Ondansetron 4 MG/2 ML SDV IVPUSH ONE (09:38)
[2021-04-27] MEDS ORDERED: Dicyclomine 10 MG Cap PO ONE (09:38)
[2021-04-27] MEDS ORDERED: Ketorolac 30 MG/ML SDV IVPUSH ONE (09:40)
[2021-04-27 10:15] LABS: BLOOD UREA NITROGEN,BUN 12 mg/dL (7.0-18.0); CARBON DIOXIDE,CO2 30.6 mmol/L (21.0-32.0); CHLORIDE,CL 102 mmol/L (98-107); GLUCOSE RANDOM 122 mg/dL (74-106); LIPASE 45 U/L (73-393); POTASSIUM,K 3.7 mmol/L (3.5-5.1); SODIUM,NA 140 mmol/L (136-145)
[2021-04-27 12:34] VITALS: BP 174/95; PULSE 88
== END 2021-04-27 12:32 | disposition home or self-care (01) ==
LOC: MW.ED 09:08
DX: R10.84 Generalized abdominal pain (principal); J44.9 Chronic obstructive pulmonary disease, unspecified; I10 Essential (primary) hypertension; Z88.0 Allergy status to penicillin; Z88.1 Allergy status to other antibiotic agents; Z88.5 Allergy status to narcotic agent; Z91.040 Latex allergy status; Z88.8 Allergy status to other drugs, medicaments and biological substances; Z72.0 Tobacco use; Z79.899 Other long term (current) drug therapy
CPT/HCPCS: 36415; 74176; 80053; 80305; 80307; 81001; 83690; 85025; 87804; 96374; 96375; 99284; A9270; J1885; J2405; J7030

== ENCOUNTER 2021-04-30 14:24 | Emergency (ER) | payer MEDICARE, MEDICAID ==
[2021-04-30 14:46] VITALS: BP 170/74; PULSE 101
== END 2021-04-30 15:04 | disposition home or self-care (01) ==
LOC: MW.ED 14:24
DX: B02.9 Zoster without complications (principal); I10 Essential (primary) hypertension; J44.9 Chronic obstructive pulmonary disease, unspecified; Z88.0 Allergy status to penicillin; Z88.5 Allergy status to narcotic agent; Z91.040 Latex allergy status; Z88.8 Allergy status to other drugs, medicaments and biological substances; Z79.899 Other long term (current) drug therapy
CPT/HCPCS: 99282

== ENCOUNTER 2021-05-06 12:39 | Emergency (ER) | payer MEDICARE, MEDICAID ==
[2021-05-06 12:52] VITALS: BP 177/102; PULSE 95
[2021-05-06] MEDS ORDERED: Sodium Chloride 0.9% 2.5 ML Syringe FLUSH PRN (12:59)
[2021-05-06] MEDS ORDERED: Sodium Chloride 0.9% 1,000 ML IV ONE (12:59)
[2021-05-06] MEDS ORDERED: Sodium Chloride 0.9% 10 ML Syringe FLUSH PRN (12:59)
[2021-05-06] MEDS ORDERED: fentaNYL 50 MCG/ML SDV IVPUSH ONE (13:05)
[2021-05-06] MEDS ORDERED: Ondansetron 4 MG/2 ML SDV IVPUSH ONE (13:05)
[2021-05-06] MEDS ORDERED: Bisacodyl 5 MG Tab PO ONE (13:06)
[2021-05-06] MEDS ORDERED: Bisacodyl 10 MG Supp RECTAL ONE (13:06)
== END 2021-05-06 13:16 | disposition left against medical advice (07) ==
LOC: MW.ED 12:39
DX: R10.9 Unspecified abdominal pain (principal); I10 Essential (primary) hypertension; J44.9 Chronic obstructive pulmonary disease, unspecified; E66.9 Obesity, unspecified; Z68.41 Body mass index [BMI] 40.0-44.9, adult; Z88.1 Allergy status to other antibiotic agents; Z88.5 Allergy status to narcotic agent; Z91.040 Latex allergy status; Z88.8 Allergy status to other drugs, medicaments and biological substances
CPT/HCPCS: 99283; 99284-25

== ENCOUNTER → 2021-07-26 | Day surgery (SDC) | payer MEDICARE, MEDICAID ==
[~2021-07-26] MED LIST changes: +Sodium Chloride 0.9% 10 ML Syringe FLUSH PRN; +Sodium Chloride 0.9% 2.5 ML Syringe FLUSH PRN; +Sodium Chloride 0.9% 20 ML SDV IV PRN; +propofoL 0 ML ONE
[2021-07-26 07:39] VITALS: BP 129/90; PULSE 92
== END ==
LOC: MW.SDS 07:23
PROVIDERS: ATTEND Surgery
DX: R10.9 Unspecified abdominal pain (principal); R11.0 Nausea; Z53.09 Procedure and treatment not carried out because of other contraindication; J44.9 Chronic obstructive pulmonary disease, unspecified; E66.9 Obesity, unspecified; I10 Essential (primary) hypertension; F17.210 Nicotine dependence, cigarettes, uncomplicated; Z86.16 Personal history of COVID-19; Z98.890 Other specified postprocedural states; Z79.899 Other long term (current) drug therapy; Z68.30 Body mass index [BMI] 30.0-30.9, adult
CPT/HCPCS: J2704; J7120